=== PATIENT | male | born 1980 | race African-American/Black ===

== ENCOUNTER 2020-01-03 17:52 | Emergency (ER) | payer BC, SELFPAY ==
--- NOTE | ~2020-01-03 | XR_ITS ---
XR chest 1V portable 01/03/2020 18:24 Indication: Cough, fever and body aches Procedure: AP portable chest Comparison: No prior studies for comparison. Findings: There is dilated colon in the left upper abdomen with elevation of the left diaphragm. Ther e is left basilar atelectasis. Mediastinal shift to the right. Right lung clear. No definite pleural effusion or pneumothorax. No edema. Impression: 1: Elevated left diaphragm with underlying left basilar atelectasis. Moderately dilated left colon, n onspecific. Reviewed, dictated and finalized at location A. Impression: 1: Elevated left diaphragm with underlying left basilar atelectasis. Moderately dilated left colon, nonspecific.
[2020-01-03 17:58] VITALS: BP 149/99; PULSE 110; TEMP 37.6; O2SAT 97
--- NOTE | 2020-01-03 18:02 | ED.SOB ---
HPI - SOB/Dyspnea General Chief Complaint: Shortness of Breath/Dyspnea Stated Complaint: has a gas bubble, was tested for covid earlier Time Seen by Provider: 01/03/20 17:56 Source: patient Mode of arrival: ambulatory Limitations: no limitations History of Present Illness HPI Narrative: Patient is a 39 year old male who presents to the emergency department from the urgent care due to an abnormal chest X-RAY. He reports shortness of breath, cough, fever of 100F, body aches, and chronic sinus issues, but he denies rhinorrhea or pain anywhere. Patient has a normal appetite. Per the Urgent Care Provider, the chest X-RAY showed a left hemidiaphragm with a huge gas bubble that was moving the heart to the right. Patient denies a past medical history or a surgical history besides his wisdom teeth extraction. He is a non-smoker and he drinks occasionally. Patient denies marijuana or other drug use. He works at a [employer]. MD elicited complaint: shortness of breath Pertinent past history: other (none) Associated symptoms: fever, cough and other (body aches) Treatment prior to arrival: other (chest X-RAY) Related Data Allergies Allergy/AdvReac Type Severity Reaction Status Date / Time No Known Allergies Allergy Unverified 11/05/14 17:48 Review of Systems Review of Systems: All systems reviewed & are unremarkable except as noted in HPI and below Constitutional: Constitutional: Reports body ache(s), Reports fever(s) (100F) and Denies other (pain anywhere) ENT: Reports other (Reports: chronic sinus issues; Denies: rhinorrhea) Respiratory: Respiratory: Reports cough and Reports dyspnea PMF Past Medical History Medical History (Updated 01/03/20 @ 19:18 by Mary Juares MD) No significant past medical history Surgical History Surgical History (Updated 01/03/20 @ 18:16 by Nikhil Marie) H/O wisdom tooth extraction Social History Social History (Updated 01/03/20 @ 18:16 by Nikhil Marie) Smoking status: Never smoker Alcohol intake: current Alcohol use details: drinks occasionally Substance use: never Occupation/Education: occupation Additional occupation/education comments: Works at a [employer] Exam Const: General: healthy appearing and other (tall) Orientation/consciousness: patient oriented x3 (alert) Neck: Neck: normal visual inspection, full ROM, no lymphadenopathy and no JVD Resp: Effort & Inspection: normal respiratory effort Auscultation: clear to auscultation bilaterally and no wheezes Cardio: Jugular venous distension: no JVD Rate: regular rate Rhythm: regular rhythm Heart sounds: no murmurs Peripheral pulses: radial pulses present bilateral GI: Inspection: other (protuberant abdomen) GI Palp: No abdominal tenderness Skin: General skin exam: normal color and dry skin Nails: normal Neuro: General: patient oriented x3 (alert) Speech: normal speech Extrem: General: no edema Course Reevaluation(s) Reevaluation #1: Discussed patients imaging results and patient agrees with discharge. Date: 01/03/20 Time: 18:45 Vital Signs Vital signs: Vital Signs Temperature 99.7 F H 01/03/20 17:58 Pulse Rate 110 H 01/03/20 17:58 Blood Pressure 149/99 H 01/03/20 17:58 Pulse Oximetry 97 01/03/20 17:58 Temperature 99.2 F 01/03/20 19:40 Pulse Rate 99 01/03/20 19:40 Respiratory Rate 18 01/03/20 19:40 Blood Pressure 125/88 01/03/20 19:40 Pulse Oximetry 100 01/03/20 19:40 MDM - SOB/Dyspnea Imaging Data Radiologist's impression: ITS Impressions Chest X-Ray 01/03/20 18:31 Impression: 1: Elevated left diaphragm with underlying left basilar atelectasis. Moderately dilated left colon, nonspecific. Discharge Plan Discharge Clinical Impression: Dilatation of colon, Cough Fever Qualifiers: Fever type: unspecified Qualified Code(s): R50.9 - Fever, unspecified Patient Disposition: Home, Self-Care Condition: Stable Instruct
[2020-01-03 19:21] VITALS: PULSE 103
[2020-01-03 19:40] VITALS: BP 125/88; PULSE 99; RESP 18; TEMP 37.3; O2SAT 100
== END 2020-01-03 19:43 | disposition home or self-care (01) ==
PROVIDERS: Emergency Provider Emergency Medicine
DX: K59.39 Other megacolon (principal); R05 Cough; R50.9 Fever, unspecified
CPT/HCPCS: 71045; 99283

== ENCOUNTER 2020-01-10 18:43 | Emergency (ER) | payer BC, SELFPAY ==
--- NOTE | ~2020-01-10 | XR_ITS ---
EXAMINATION: XR chest 1V portable DATE: 01/10/2020 20:23 INDICATION: Continued cough and fever TECHNIQUE: frontal view of the chest was obtained. COMPARISON: Chest radiograph dated 01/03/2020 FINDINGS: Again seen is prominent elevation of the left hemidiaphragm with gaseous dilation of the splenic flex ure of the colon. Lungs are clear with no focal airspace opacities, pulmonary edema, pleural effusion or pneumothorax. Heart size is normal. IMPRESSION: 1. No acute cardiopulmonary disease. 2. Unchanged marked elevation of the left hemidiaphragm with gaseous dilation of the splenic flexure of the colon. Reviewed, dictated and finalized at location A. IMPRESSION: 1. No acute cardiopulmonary disease. 2. Unchanged marked elevation of the left hemidiaphragm with gaseous dilation o f the splenic flexure of the colon.
[2020-01-10 19:19] VITALS: BP 129/94; PULSE 110; RESP 18; TEMP 37.2; O2SAT 99
--- NOTE | 2020-01-10 20:01 | ED.URI ---
HPI - URI/Sore Throat General Chief Complaint: Upper Respiratory Infection Stated Complaint: worsen URI infection Time Seen by Provider: 01/10/20 19:49 History of Present Illness HPI Narrative: Patient returns to the ED for continued symptoms of cough and fever. He was seen here last week and had a normal CXR. He is off work at the [employer] until his fever is gone for 72 hours. He feels fine in the daytime, and at night the fever comes back and he feels worse. No nausea, vomiting, diarrhea, or constipation. He has no other symptoms to explain the cough and fever. He finished one course of antibiotics. He took tylenol for the fever. MD elicited complaint: fever and cough Onset (ago): week(s) Consistency: intermittent Severity: mild Able to tolerate fluids by mouth: Yes Exacerbating factors: nothing Relieving factors: nothing Associated symptoms: denies other symptoms Related Data Allergies Allergy/AdvReac Type Severity Reaction Status Date / Time No Known Allergies Allergy Verified 01/10/20 19:43 Review of Systems Review of Systems: All systems reviewed & are unremarkable except as noted in HPI and below Constitutional: Constitutional: Reports fever(s) ENT: Denies dysphagia, Denies nasal congestion and Denies sore throat Cardiovascular: Cardiovascular: Reports no additional cardiovascular complaints Respiratory: Respiratory: Reports cough and Denies wheezing Gastrointestinal: Gastrointestinal: Reports no additional gastrointestinal complaints Musculoskeletal: Musculoskeletal: Reports no additional musculoskeletal complaints PMFSH Past Medical History Medical History No significant past medical history Surgical History Surgical History H/O wisdom tooth extraction Social History Social History Smoking status: Never smoker Alcohol intake: current Substance use: never Additional occupation/education comments: Works at a [employer] Gender identity (if verbalized by the patient): Male Exam Const: General: healthy appearing, no acute distress and alert Nutritional Appearance: well nourished Orientation/consciousness: patient oriented x3 HENMT: Head: normal to inspection General nose exam: Normal external nose present Face and sinus: normal facial exam Mouth: Yes moist mucous membranes Eyes: Conjunctivae: conjunctivae normal Pupils: Equal, round and reactive pupils present EOM: EOMs intact bilaterally Neck: Neck: normal visual inspection Chest: Chest palpation & inspection: normal inspection of the chest Resp: Effort & Inspection: normal respiratory effort Auscultation: clear to auscultation bilaterally Cardio: Rate: regular rate Rhythm: regular rhythm GI: GI Palp: Yes Soft to palpation Skin: General skin exam: normal color Rashes: no rashes Other: no hair on his legs Neuro: General: patient oriented x3, moves all extremities and no focal motor deficits Extrem: General: normal to inspection Course Reevaluation(s) Reevaluation #1: He wants to know about the influenza swab. It is a point of care, and it was negative. Date: 01/10/20 Time: 21:58 Vital Signs Vital signs: Vital Signs Temperature 98.9 F 01/10/20 19:19 Pulse Rate 110 H 01/10/20 19:19 Respiratory Rate 18 01/10/20 19:19 Blood Pressure 129/94 H 01/10/20 19:19 Pulse Oximetry 99 01/10/20 19:19 Temperature 98.9 F 01/10/20 19:19 Pulse Rate 100 01/10/20 21:21 Respiratory Rate 18 01/10/20 21:21 Blood Pressure 129/98 H 01/10/20 21:21 Pulse Oximetry 96 01/10/20 21:21 MDM - URI/Sore Throat Lab Data Labs: Influenza A Screen Negative Reference Range: Negative Influenza B Screen Negative Reference Range: Negative Discharge Plan Discharge Clinical Impression: Upper respiratory infection
[2020-01-10 21:21] VITALS: BP 129/98; PULSE 100; RESP 18; O2SAT 96
[2020-01-10 22:18] VITALS: BP 152/99; PULSE 104; RESP 18; O2SAT 96
== END 2020-01-10 22:23 | disposition home or self-care (01) ==
PROVIDERS: Emergency Provider Emergency Medicine
DX: J06.9 Acute upper respiratory infection, unspecified (principal)
CPT/HCPCS: 71045; 87804; 99283

== ENCOUNTER 2020-01-26 00:42 | Day surgery (SDC) | payer BC, SELFPAY ==
[2020-01-24 09:03] VITALS: BMI 28.9
--- NOTE | 2020-01-25 17:39 | P.PNAN_ITS ---
Anes - Eval Pre Procedure Procedure: Colonoscopy Operation Date: 01/26/20 09:30 Proposed Procedures p Colonoscopy - Willi Valdez MD Date/Time: 01/25/20 17:39 Surgeon: Fernando Preop Diagnosis: Colon stricture Pre Op Diagnosis: Colon Stricture Patient Data Age: 39 Gender: M Height: 6 ft 3 in Weight: 105 kg Allergies Allergy/AdvReac Type Severity Reaction Status Date / Time No Known Allergies Allergy Verified 01/24/20 08:56 Home Medications Medication Instructions Recorded Confirmed Type albuterol sulfate 1 inh INHALATION QID PRN 01/24/20 01/24/20 History fluticasone propionate [Flonase 1 spray INTRANASAL DAILY 01/24/20 01/24/20 History Allergy Relief] loratadine [Claritin] 10 mg PO DAILY 01/24/20 01/24/20 History qwihxhleucyp-jho-gpfq-FA-vit K 1 tablet PO DAILY 01/24/20 01/24/20 History [Adults Multivitamin] Patient hx anesthesia problems: none Family hx anesthesia problems: none PMFSH Past Medical History Medical History (Updated 01/25/20 @ 17:40 by Meño Boyce CRNA) Abnormal CT scan, colon Bronchial spasms Cough Elevated hemidiaphragm Hyperglycemia Left lower quadrant abdominal pain No significant past medical history Surgical History Surgical History H/O wisdom tooth extraction Family History Family History Mother Hypertension Father Hypertension Social History Social History Smoking status: Never smoker Alcohol intake: current Substance use: never Additional occupation/education comments: Works at a [employer] Gender identity (if verbalized by the patient): Male Exam Day of Procedure 01/25/20 17:39
[2020-01-26 07:36] VITALS: BP 140/91; PULSE 101; RESP 18; TEMP 36.7; O2SAT 95
[2020-01-26] MEDS: LACTATED RINGERS 1,000 ML 150 ML IV CONT (07:51)
--- NOTE | 2020-01-26 09:26 | P.PNAN_ITS ---
Anes - Eval Final PreProcedure Day of Procedure 01/26/20 09:26 Patient weight: obese Heart: regular rate and rhythm Lungs: clear to auscultation Airway: Mallampati scale class II Neurological: alert and oriented Last oral intake: >/= 8 hours ASA classification: II Emergent: no Anesthetic plan: proceed Anesthesia type and monitoring: general GIVS and standard monitoring Informed Consent: The patient's anesthetic plan and its attendant risks and be nefits were discussed with the patient/family/POA. Questions were solicited and answers provided to the satisfaction of the patient/family/POA.
--- NOTE | 2020-01-26 09:48 | WPDHPUPDATE1 ---
History and Physical Update Update Date/Time: 01/26/20 09:48 History and Physical has been reviewed, including an updated exam of the patient. There are NO changes in the patient's condition. Risks, benefits, and alternatives have been discussed and questions answered. Patient agrees to proceed with procedure.
[2020-01-26 11:08] VITALS: BP 101/63; PULSE 100; RESP 21; O2SAT 98
[2020-01-26 11:18] VITALS: BP 105/68; PULSE 100; RESP 20; O2SAT 100
[2020-01-26 11:28] VITALS: BP 113/77; PULSE 100; RESP 20; O2SAT 100
[2020-01-26 11:38] VITALS: BP 112/78; PULSE 101; RESP 24; O2SAT 100
== END 2020-01-26 12:18 | disposition home or self-care (01) ==
PROVIDERS: PCP Family Medicine Sports Medicine; Visit Provider Internal Medicine Gastroenterology
PROC: 0DJD8ZZ Inspection of Lower Intestinal Tract, Via Natural or Artificial Opening Endoscopic (ICD-10-PCS; CPT 45378; principal; 2020-01-26 09:30)
DX: R10.84 Generalized abdominal pain (principal); K63.89 Other specified diseases of intestine
CPT/HCPCS: 45378; J2704; J7120

== ENCOUNTER 2020-01-27 08:27 | Outpatient (CLI) | payer BC, SELFPAY ==
--- NOTE | ~2020-01-27 | XR_ITS ---
EXAMINATION: XR_ENEMAB_CR DATE: 01/27/2020 09:27 INDICATION: Abdominal pain. Incomplete colonoscopy. TECHNIQUE: A ophthalmic asst radiograph was obtained. A catheter was inserted into the patient's rectum. Contra st was infused by gravity. Gas was infused by hand pump. Fluoroscopic spot images and conventional ra diographs were obtained. Fluoroscopy exposure time was 1.5 minutes. The total number of images was 70 . COMPARISON: None. FINDINGS: There is marked elevation of left hemidiaphragm. The sigmoid colon is distended under the l eft hemidiaphragm. There is no mass or stricture. The cecum was not well opacified, but is normal. IMPRESSION: 1. Distended sigmoid colon, consistent with adynamic ileus. 2. Marked elevation of left hemidiaphragm. Reviewed, dictated and finalized at location A.
== END 2020-01-27 08:28 | disposition home or self-care (01) ==
LOC: ANHIMG 08:28
PROVIDERS: PCP Family Medicine Sports Medicine; Visit Provider Internal Medicine Gastroenterology
DX: J98.6 Disorders of diaphragm (principal); R10.32 Left lower quadrant pain; K63.89 Other specified diseases of intestine
CPT/HCPCS: 74270

== ENCOUNTER 2020-02-19 00:37 | Outpatient (CLI) | payer BC, SELFPAY ==
[2020-02-19 16:46] LABS: SARS-CoV-2 RNA PCR Negative
== END 2020-02-19 00:38 | disposition home or self-care (01) ==
LOC: ANHCOVIDDT 00:37
PROVIDERS: PCP Family Medicine Sports Medicine; Visit Provider Surgery
DX: Z01.818 Encounter for other preprocedural examination (principal); Z11.59 Encounter for screening for other viral diseases
CPT/HCPCS: 87635; C9803; U0003

== ENCOUNTER 2020-02-19 09:29 | Outpatient (CLI) | payer BC, SELFPAY | END 2020-02-19 09:30 | disposition home or self-care (01) | PROVIDERS: PCP Family Medicine Sports Medicine; Visit Provider Surgery | DX: Z01.818 Encounter for other preprocedural examination (principal); K40.90 Unilateral inguinal hernia, without obstruction or gangrene, not specified as recurrent | CPT/HCPCS: 36415; 86850; 86900; 86901 ==

== ENCOUNTER 2020-02-22 01:09 | Day surgery (SDC) | payer BC, SELFPAY ==
[2020-02-14 11:21] VITALS: BMI 29.3
[2020-02-22] VITALS (9 sets, daily range): BP systolic 117–161; BP diastolic 88–107; PULSE 83–111; RESP 12–30; TEMP 36–36.6; O2SAT 93–100
[2020-02-22] MEDS: LACTATED RINGERS 1,000 ML 30 ML IV CONT ×3 (06:55→10:36)
--- NOTE | 2020-02-22 07:11 | P.PNAN_ITS ---
Anes - Initial Pre Proc Eval Procedure: Operation Date: 02/22/20 08:30 Proposed Procedures p Laparoscopic Left Inguinal Hernia Repair With Mesh, Davinci Assisted - Talon Flores DO s Umbilical Hernia Repair - Talon Flores DO Date/Time: 02/22/20 07:11 Surgeon: Talon Flores DO Pre Op Diagnosis: Left Inguinal / Umbilical Hernias Patient Data Age: 39 Gender: M Height: 6 ft 3 in Weight: 106.3 kg Allergies Allergy/AdvReac Type Severity Reaction Status Date / Time No Known Allergies Allergy Verified 02/22/20 06:36 Home Medications Medication Instructions Recorded Confirmed Type albuterol sulfate 1 inh INHALATION QID PRN 01/24/20 02/22/20 History fluticasone propionate [Flonase 1 spray INTRANASAL DAILY 01/24/20 02/22/20 History Allergy Relief] loratadine [Claritin] 10 mg PO DAILY 01/24/20 02/22/20 History xpucnpgoxzem-aau-shzl-FA-vit K 1 tablet PO DAILY 01/24/20 02/22/20 History [Adults Multivitamin] Patient hx anesthesia problems: none Family hx anesthesia problems: none PMFSH Past Medical History Medical History Abnormal CT scan, colon Bronchial spasms Constipation Cough Elevated hemidiaphragm Hyperglycemia Left lower quadrant abdominal pain No significant past medical history Tortuous colon Surgical History Surgical History H/O colonoscopy 01/26/2020 H/O wisdom tooth extraction 2015 Family History Family History Mother Hypertension Father Hypertension Other Diabetes mellitus Other Cerebrovascular accident Social History Social History Smoking status: Never smoker Alcohol intake: current Substance use: never Additional occupation/education comments: Works at a [employer] Gender identity (if verbalized by the patient): Male Anes - Eval Final PreProcedure Day of Procedure 02/22/20 07:11 Patient weight: overweight Heart: regular rate and rhythm Lungs: clear to auscultation Airway: Mallampati scale class II Neurological: alert and oriented Last oral intake: >/= 8 hours ASA classification: II Emergent: no Anesthetic plan: proceed Anesthesia type and monitoring: general ETT and standard monitoring Informed Consent: The patient's anesthetic plan and its attendant risks and benefits were discussed with the patient/family/POA. Questions were solicited and answers provided to the satisfaction of the patient/family/POA.
--- NOTE | 2020-02-22 07:50 | WPDHPUPDATE1 ---
History and Physical Update Update Date/Time: 02/22/20 07:50 History and Physical has been reviewed, including an updated exam of the patient. There are NO changes in the patient's condition. Risks, benefits, and alternatives have been discussed and questions answered. Patient agrees to proceed with procedure.
[2020-02-22] MEDS: ceFAZolin 2 GM/D5W 50 ML 2 GM/50 ML BAG IVPB (08:17)
[2020-02-22] MEDS: IBUPROFEN IV 800 MG/200 ML 800 MG/200 ML BAG 400 MG IVPB (08:17)
[2020-02-22] MEDS: BUPIVACAINE/EPINEPHRINE 0.5% 30 ML VIAL INFILTRATE (09:02)
--- NOTE | 2020-02-22 09:50 | PM.PROC ---
Procedure Note - Detailed Date of procedure: 02/22/20 Pre-op diagnosis: Left Inguinal / Umbilical Hernias Post-op diagnosis: same (direct left inguinal hernia, umbilical hernia) Procedure performed: 1. Laparoscopic left inguinal hernia repair with Progrip mesh, da Jin assisted 2. Umbilical hernia repair Description of procedure: Procedure as well as risks, benefits, and alternatives were discussed with the patient. Written consent was obtained and placed in chart prior to procedure. Patient was brought back to surgical suite. He was placed supine on operating table. Time-out was done to confirm patient and procedure. He was then intubated by Anesthesia Department. His abdomen was prepped and draped in sterile fashion using chlorhexidine prep. 0.5% bupivacaine with epinephrine was infiltrated at each location for incision. A 2 cm curvilinear incision was made just superior to the umbilicus using a 15 blade scalpel. Electrocautery was used for hemostasis and for dissection down to the linea alba. The hernia defect was carefully isolated and the umbilical stalk was lifted off the hernia sac using electrocautery. The hernia sac was excised and the peritoneum was entered. A 12 millimeter trocar was inserted through the hernia defect and carbon dioxide insufflation was used to create a pneumoperitoneum. A camera was inserted and the abdominal cavity was inspected. The patient was placed in slight Trendelenburg position. An 8 millimeter incision was made on the right lateral abdomen and an 8 millimeter trocar was inserted under direct visualization. Another 8 millimeter incision was made in the left lateral abdomen and an 8 millimeter trocar was inserted under direct visualization. The robotic arms were brought up to the patient's bedside and secured to the ports. The camera and instruments were inserted. I then moved over to the robotic console and took control of the camera and instruments. After careful inspection of the abdominal cavity, I began scoring the peritoneum along the left lower quadrant using scissors with electrocautery. The preperitoneal plane was entered and this was carefully dissected caudally along the inferior epigastric vessels. Careful dissection with scissors with electrocautery and blunt dissection was used to continue this dissection. I dissected far enough laterally to allow for mesh placement, and also dissected medially to identify the pubic arch and Kelvin's ligament. The hernia sac was identified and carefully dissected posteriorly. The cord contents were also identified and the peritoneum was carefully dissected far enough posteriorly to allow for mesh placement. Once an adequate pocket was created, I then placed the mesh within the preperitoneal pocket and carefully unfolded it. The mesh was centered on the hernia defect with adequate overlap circumferentially. The inferior edge of the mesh was inspected to ensure that it was far enough away from the peritoneal edge. The mesh appeared in proper position overlying the entire myopectineal orifice. The peritoneum was then closed over the mesh using a 3-0 V-lock running absorbable suture. The robotic instruments were removed. The robotic arms were disengaged from the ports and moved away from the bedside. The patient was flattened out in bed, the ports were removed under direct visualization, and the pneumoperitoneum was released. The umbilical hernia was repaired using 0 Ethibond [id number] sutures. A total of 3 sutures were placed transversely to approximate the fascia. The umbilical stalk was then reapproximated to the fascia using 3 0 Vicryl simple interrupted suture. The deep dermis was also reapproximated using 3 0 Vicryl simple interrupted sutures. The skin of the incisions was approximated using 4-0 Monocryl subcuticular suture, and Exofin glue was applied on top. The patient was awakened from anesthesia, extubated, and transferred to recovery. Implants: Progri
== END 2020-02-22 11:49 | disposition home or self-care (01) ==
PROVIDERS: PCP Family Medicine Sports Medicine; Visit Provider Surgery
PROC: 8E0Y4CZ Robotic Assisted Procedure of Lower Extremity, Percutaneous Endoscopic Approach (ICD-10-PCS; CPT 49650; principal; 2020-02-22 08:30)
PROC: (CPT 49650; 2020-02-22 08:30)
DX: K40.90 Unilateral inguinal hernia, without obstruction or gangrene, not specified as recurrent (principal); K42.9 Umbilical hernia without obstruction or gangrene
CPT/HCPCS: 49650; S2900; A9270; C1781; J0690; J1100; J1741; J2250; J2405; J2704; J2710; J3010; J7030; J7120

== ENCOUNTER 2020-03-08 12:45 | Outpatient (CLI) | payer BC, SELFPAY ==
--- NOTE | ~2020-03-08 | XR_ITS ---
EXAMINATION: XR abdomen/kub 1V DATE: 03/08/2020 13:07 INDICATION: Abdominal pain.: Distention. TECHNIQUE: A supine view of the abdomen on 3 radiographs was obtained. COMPARISON: Contrast enema 01/27/2020 FINDINGS: There is gaseous distention of the sigmoid colon. There is a moderate volume of stool in th e colon. There are 13 round radiopaque markers in the colon. IMPRESSION: 1. Chronic gaseous distention of the sigmoid colon, consistent with adynamic ileus. Reviewed, dictated and finalized at location A. IMPRESSION: 1. Chronic gaseous distention of the sigmoid colon, consistent with adynamic il eus.
== END 2020-03-08 12:46 | disposition home or self-care (01) ==
PROVIDERS: PCP Family Medicine Sports Medicine
DX: R10.9 Unspecified abdominal pain (principal); K63.89 Other specified diseases of intestine
CPT/HCPCS: 74018

== ENCOUNTER 2020-03-10 11:45 | Outpatient (CLI) | payer BC, SELFPAY ==
--- NOTE | ~2020-03-10 | XR_ITS ---
XR abdomen/kub 1V DATE: 03/10/2020 12:13 INDICATION: Abdominal pain, Colon distention, insertion. TECHNIQUE: AP views COMPARISON: 03/08/2020 KUB FINDINGS: 1 residual Sitz marker is noted in the proximal descending colon. There is a prominent amount of fecal material in the ascending colon, hepatic flexure, splenic flexur e and descending colon. No evidence of bowel obstruction. No visceromegaly or significant abnormal calcification is evident. Transitional lumbosacral vertebra. IMPRESSION: 1 residual Sitz marker in proximal descending colon Reviewed, dictated and finalized at Location A. Reviewed, dictated and finalized at location A.
== END 2020-03-10 11:46 | disposition home or self-care (01) ==
PROVIDERS: PCP Family Medicine Sports Medicine; Visit Provider Obstetrics & Gynecology Gynecologic Oncology
DX: R10.9 Unspecified abdominal pain (principal); Z97.8 Presence of other specified devices
CPT/HCPCS: 74018

== ENCOUNTER 2020-04-06 19:58 | Emergency (ER) | payer BC, SELFPAY ==
--- NOTE | ~2020-04-06 | XR_ITS ---
XR chest 1V portable 04/06/2020 22:40 Indication: Fatigue, fever and headache Procedure: AP portable chest Comparison: Comparison to multiple prior studies sequentially, with oldest reviewed study dated . Findings: Markedly elevation left diaphragm. Mediastinal shift to the right. Cardiomegaly. Severe dis tention of the left colon at the splenic flexure. No focal pneumonia, edema, pleural effusion or pneu mothorax. Impression: 1: Left basilar atelectasis secondary to markedly elevated left diaphragm. 2: Chronically dilated left colon at the splenic flexure. Reviewed, dictated and finalized at location A. Impression: 1: Left basilar atelectasis secondary to markedly elevated left diaphragm. 2: Chronically dilated left colon at the splenic flexure.
[2020-04-06 20:18] VITALS: BP 138/85; PULSE 132; RESP 14; TEMP 37.9; O2SAT 99
--- NOTE | 2020-04-06 22:15 | PC.NURSE ---
Pt to ED complaining of fll body being sore. Pt reports he was mowing and out at pool. Pt reports after showing he felt dizzy and had a JIMENEZ. Pt reports fever of 101.6 F. Pt has hx of double hernia repair and extended colon. denies n/v/d, denies CP
--- NOTE | 2020-04-06 22:28 | ED.GENADULT ---
HPI - General Adult General Chief complaint: Headache Stated complaint: JIMENEZ, fever Time Seen by Provider: 04/06/20 22:18 Source: RN notes reviewed History of Present Illness HPI narrative: Patient presents emergency department from home for fever. Patient states that he had felt fine earlier today. He states he was outside all day doing yard work mowing the yard and putting on fertilizer. He states afterwards he gotten swelling below there was again outside and felt fine. He states that he is coming inside he began to feel bad waiting on the shower and after the shower felt achy in general and took his temperature and was noted to have a fever of 101.2. He states with the fever he has had a headache this is the top of his head and does not radiate he also notes a nonproductive cough for the past 2 days. He denies any ear pain rhinorrhea sore throat chest pain abdominal pain nausea vomiting or any other symptoms. Patient states he took no Tylenol at home Related Data Home Medications Medication Instructions Recorded Confirmed Adults Multivitamin 1 tablet PO DAILY 01/24/20 03/28/20 albuterol sulfate 1 inh INHALATION QID PRN 01/24/20 03/28/20 fluticasone propionate [Flonase 1 spray INTRANASAL DAILY 01/24/20 03/28/20 Allergy Relief] loratadine [Claritin] 10 mg PO DAILY 01/24/20 03/28/20 Allergies Allergy/AdvReac Type Severity Reaction Status Date / Time No Known Allergies Allergy Verified 04/06/20 20:20 Review of Systems Review of Systems: Narrative: Gen.: Fever Eyes: Denies eye pain or visual change ENT: Denies congestion Respiratory: Denies shortness of breath reports cough CV: Denies chest pain or palpitations GI: Denies abdominal pain nausea, emesis or diarrhea Musculoskeletal: Denies back pain reports myalgia Neuro: Denies numbness, tingling, weakness or focal weakness, reports headache Skin: Denies rash Except as documented, all other systems reviewed and negative PMFSH Past Medical History Medical History Abnormal CT scan, colon Bronchial spasms Constipation Cough Elevated hemidiaphragm Hyperglycemia Left lower quadrant abdominal pain No significant past medical history Tortuous colon Social History Social History (Reviewed 04/06/20 @ 22:29 by EDILIA Rene Smoking status: Never smoker Alcohol intake: current Substance use: never Additional occupation/education comments: Works at a [employer] Gender identity (if verbalized by the patient): Male Exam Narrative: Exam Narrative: APPEARANCE: No acute distress, nontoxic, resting in bed EYES: EOMI, Nasim HEENT: Normocephalic, atraumatic, OMM, TMs clear bilaterally, nares patent Neck: Supple, no tenderness palpation full range of motion without pain, no managements RESPIRATORY: No respiratory distress Clear to auscultation bilaterally with no rhonchi wheezing or rales. CARDIOVASCULAR: Regular rate and rhythm without murmurs rubs or gallops. ABDOMINAL: Soft, nontender, nondistended, no rebound or guarding MUSCULOSKELETAl: Moves all extremities. No clubbing, cyanosis or edema. NEURO: Awake and alert x 3. Following commands, speech normal, no focal deficits SKIN:: Warm, dry. No rashes lesions or abrasions PSYCHIATRIC: Normal affect/mood, Course Course Emergency Course: Patient states he is feeling much better at this time. States that headache has resolved. Discussed with patient and with the cough and fever today I will obtain COVID swab Reviewed old records. Patient has been noted to have persistent mild sinus tachycardia over his last several physician visits Discussed with patient results of workup and diagnosis. Discussed need for follow-up with primary care, proper use of medication, and reasons to return to the emergency department. Patient understands and agrees to current treatment plan Vital Signs Vital signs: Vital Signs Temperature 100.2 F H 04/06/20 20:18 Puls
[2020-04-06] MEDS: SODIUM CHLORIDE 0.9% IV 1,000 ML 999 ML IV CONT ×2 (22:47→23:32)
[2020-04-06 22:49] VITALS: BP 149/119; RESP 20; TEMP 38.2; O2SAT 93
[2020-04-06 22:53] LABS: Basophils Percent Auto 0.3 % (0.2-1.2); Eosinophils Percent Auto 0.1 % (0-4.4); Hematocrit 45.7 % (42.0-52.0); Hemoglobin 15.9 g/dL (14.0-18.0); Immature Granulocyte Absolute 0.06 K/mm3 (0.00-0.031); Immature Granulocyte Percent A 0.5 % (0-0.5); Lymphocytes Percent Auto 4.8 % (18.3-44.2); Mean Corpuscular HGB Conc 34.8 g/dl (32-36); Mean Corpuscular Hemoglobin 27.4 pg (26-34); Mean Corpuscular Volume 78.7 fl (80-100); Mean Platelet Volume 10.6 fl (7.4-10.4); Monocytes Absolute Auto 0.5 K/mm3 (0.1-0.6); Monocytes Percent Auto 3.8 % (2.6-8.5); Neutrophils Absolute Auto 11.3 K/mm3 (1.3-6.7); Neutrophils Percent Auto 90.5 % (45.5-73.1); Platelet Count Result 238 k/mm3 (150-375); Red Blood Count 5.81 M/mm3 (4.6-6.20); Red Cell Distribution Width 13.1 % (11.5-14.5); White Blood Count 12.5 K/mm3 (4.5-10.0)
[2020-04-06 23:02] LABS: Alanine Aminotransferase 30 U/L (4-50); Albumin Level 4.5 g/dL (3.5-5.1); Alkaline Phosphatase 119 U/L (38-126); Aspartate Amino Transferase 29 U/L (17-59); Bilirubin,Total 0.8 mg/dL (0.2-1.3); Blood Urea Nitrogen 9 mg/dL (9-20); Carbon Dioxide 24 mmol/L (22-30); Chloride 99 mmol/L (98-107); Creatine Kinase 92 U/L (55-170); Estimated CRCL calculation 129 ml/min; Estimated Glomerular Filt Rate > 60; Glucose 278 mg/dL (75-110); Potassium 3.8 mmol/L (3.4-5.0); Sodium 135 mmol/L (137-145)
[2020-04-07 00:46] VITALS: BP 161/97; PULSE 103; RESP 12; TEMP 37.1; O2SAT 96
[2020-04-07 01:08] VITALS: BP 169/92; PULSE 98; RESP 18; TEMP 37.1; O2SAT 100
[2020-04-07 13:49] LABS: SARS-CoV-2 RNA PCR Negative
== END 2020-04-07 01:10 | disposition home or self-care (01) ==
PROVIDERS: Emergency Provider Emergency Medicine; PCP Family Medicine Sports Medicine
DX: J06.9 Acute upper respiratory infection, unspecified (principal); Z20.828 Contact with and (suspected) exposure to other viral communicable diseases
CPT/HCPCS: 36415; 71045; 80053; 82550; 85025; 87635; 96361; 96365; 99284; C9803; J0131; J7030; U0003

== ENCOUNTER 2021-07-16 19:37 | Emergency (ER) | payer BC, SELFPAY ==
--- NOTE | ~2021-07-16 | XR_ITS ---
EXAMINATION: XR chest 2V DATE: 07/16/2021 20:21 INDICATION: Cough, COVID TECHNIQUE: PA and lateral views of the chest are obtained. COMPARISON: 04/06/2020 FINDINGS: The lungs are free of acute opacities. There is no pleural effusion or pneumothorax. The ca rdiomediastinal silhouette is normal. There is mild thoracic spondylosis. There is chronic distention of the sigmoid colon. IMPRESSION: 1. No acute cardiopulmonary abnormality. Reviewed, dictated and finalized at location A.
[2021-07-16 19:42] VITALS: BP 144/85; PULSE 101; RESP 14; TEMP 36.6; O2SAT 100
[2021-07-16 20:11] VITALS: BP 125/78; PULSE 101; RESP 16; TEMP 36.7; O2SAT 99
[2021-07-16 20:55] LABS: Basophils Percent Auto 0.7 % (0.2-1.2); Eosinophils Absolute Auto 0.1 K/mm3 (0-0.3); Eosinophils Percent Auto 1.6 % (0-4.4); Hematocrit 43.3 % (42.0-52.0); Hemoglobin 14.9 g/dL (14.0-18.0); Immature Granulocyte Absolute 0.03 K/mm3 (0.00-0.031); Immature Granulocyte Percent A 0.7 % (0-0.5); Lymphocytes Absolute Auto 1.58 K/mm3 (0.9-3.2); Lymphocytes Percent Auto 35.6 % (18.3-44.2); Mean Corpuscular HGB Conc 34.4 g/dl (32-36); Mean Corpuscular Hemoglobin 28.4 pg (26-34); Mean Corpuscular Volume 82.6 fl (80-100); Monocytes Absolute Auto 0.4 K/mm3 (0.1-0.6); Monocytes Percent Auto 7.9 % (2.6-8.5); Neutrophils Absolute Auto 2.4 K/mm3 (1.3-6.7); Neutrophils Percent Auto 53.5 % (45.5-73.1); Platelet Count Result 239 k/mm3 (150-375); Red Blood Count 5.24 M/mm3 (4.6-6.20); Red Cell Distribution Width 13.6 % (11.5-14.5); White Blood Count 4.4 K/mm3 (4.5-10.0)
--- NOTE | 2021-07-16 21:17 | ED.GENADULT ---
HPI - General Adult General Chief complaint: Upper Respiratory Infection Stated complaint: congestion, lingering cough Exposure to COVID Time Seen by Provider: 07/16/21 20:10 Source: patient History of Present Illness HPI narrative: Patient is a 40 y/o male complaining of mild to moderate dry cough for 2 weeks. He states that he took some perle which helped with his symptoms. He also started to have congestion 3 days ago. He has no fever, chest pain or SOB. He states that there were multiple household members testing positive for COVID recently. Related Data Home Medications Medication Instructions Recorded Confirmed Adults Multivitamin 1 tablet PO DAILY 01/24/20 03/28/20 albuterol sulfate 1 inh INHALATION QID PRN 01/24/20 03/28/20 fluticasone propionate [Flonase 1 spray INTRANASAL DAILY 01/24/20 03/28/20 Allergy Relief] loratadine [Claritin] 10 mg PO DAILY 01/24/20 03/28/20 Allergies Allergy/AdvReac Type Severity Reaction Status Date / Time No Known Allergies Allergy Verified 04/06/20 20:20 Review of Systems Constitutional: Constitutional: Denies chills, Denies fever(s), Denies headache(s) and Denies weakness Eyes: Eyes: Denies blurry vision ENT: Denies headache(s), Reports nasal congestion and Denies neck pain Cardiovascular: Cardiovascular: Denies chest pain and Denies dyspnea Respiratory: Respiratory: Reports cough and Denies dyspnea Gastrointestinal: Gastrointestinal: Denies abdominal pain, Denies diarrhea, Denies nausea and Denies vomiting Genitourinary: Genitourinary: Denies hematuria and Denies dysuria Musculoskeletal: Musculoskeletal: Denies back pain and Denies neck pain Neurologic: Denies headache(s) and Denies weakness [facility] Past Medical History Medical History (Updated 07/16/21 @ 21:49 by Jessa Garcia MD) Abnormal CT scan, colon Bronchial spasms Constipation Cough Elevated hemidiaphragm Hyperglycemia Left lower quadrant abdominal pain No significant past medical history Tortuous colon Surgical History Surgical History H/O colonoscopy 01/26/2020 H/O wisdom tooth extraction 2016 Status post left inguinal hernia repair Laparoscopic left inguinal hernia with Progrip mesh, Davinci assisted, umbilical hernia repair 02/22/20 Family History Family History Mother Hypertension Father Hypertension Other Diabetes mellitus Other Cerebrovascular accident Social History Social History Smoking status: Never smoker Alcohol intake: current Alcohol use details: drinks occasionally Substance use: never Additional occupation/education comments: Works at a [employer] Gender identity (if verbalized by the patient): Male Exam Const: General: no acute distress and well developed Orientation/consciousness: oriented to person, oriented to place, oriented to time and patient oriented x3 HENMT: Head: normocephalic Ears: external ears normal General nose exam: Normal external nose present Eyes: General: appearance normal, both eyes and all related structures Conjunctivae: conjunctivae normal Neck: Neck: normal visual inspection and full ROM Chest: Chest palpation & inspection: normal inspection of the chest and no tenderness Resp: Effort & Inspection: normal respiratory effort Auscultation: clear to auscultation bilaterally Cardio: Rate: regular rate Rhythm: regular rhythm GI: GI Palp: No abdominal tenderness and Yes Soft to palpation Skin: General skin exam: normal color and turgor normal Neuro: General: oriented to person, oriented to place, oriented to time and patient oriented x3 Cognition (Neuro): normal cognition Extrem: General: normal to inspection, full ROM and no pedal edema Psych: Appearance: grossly normal Mental Status: mental status grossly normal Affect: normal affect Course Vi
[2021-07-16 21:36] LABS: Alanine Aminotransferase 22 U/L (4-50); Albumin Level 4.5 g/dL (3.5-5.1); Alkaline Phosphatase 66 U/L (38-126); Anion Gap 8 mmol/L (8-16); Aspartate Amino Transferase 25 U/L (17-59); Bilirubin,Total 0.6 mg/dL (0.2-1.3); Blood Urea Nitrogen 13 mg/dL (9-20); Calcium 9.3 mg/dL (8.4-10.2); Carbon Dioxide 27 mmol/L (22-30); Chloride 103 mmol/L (98-107); Estimated CRCL calculation 128 ml/min; Estimated Glomerular Filt Rate > 60; Glucose 83 mg/dL (65-110); Potassium 3.7 mmol/L (3.4-5.0); Sodium 138 mmol/L (137-145)
[2021-07-16 22:16] VITALS: BP 132/74; PULSE 79; RESP 18; O2SAT 99
[2021-07-18 19:26] LABS: SARS-CoV-2 RNA PCR Negative
== END 2021-07-16 22:23 | disposition home or self-care (01) ==
PROVIDERS: Emergency Provider Emergency Medicine; PCP Family Medicine Sports Medicine
DX: J06.9 Acute upper respiratory infection, unspecified (principal); Z20.822 Contact with and (suspected) exposure to COVID-19
CPT/HCPCS: 36415; 71046; 80053; 85025; 99283; C9803; U0003; U0005